=== PATIENT | female | born 1965 | race Two or more races ===

== ENCOUNTER 2016-12-05 20:55 | Emergency (ER) | payer MEDICARE, OTHER ==
[~2016-12-05] VITALS: Ht 167.6 cm; Wt 79.4 kg
[2016-12-05 21:08] VITALS: BP 160/90
--- NOTE | 2016-12-05 21:17 | Emergency Room Report ---
History of Present Illness General Chief Complaint: Alcohol Intoxication Present Illness HPI The patient presents via EMS after being unsteady on her feet in the streets. She admits to having imbibed alcohol from lunchtime. She denies any suicidal ideation at this time. Patient denies any nausea vomiting diarrhea chest pain cough sore throat headache rash joint pain. (Rocky Dubon M.D.) Allergies: Coded Allergies: DULOXETINE (Verified Allergy, Unknown, 12/05/16) HALOPERIDOL (Verified Allergy, Unknown, 12/05/16) LITHIUM (Verified Allergy, Unknown, 12/05/16) SHELLFISH DERIVED (Verified Allergy, Unknown, 12/05/16) SULFA (SULFONAMIDE ANTIBIOTICS) (Verified Allergy, Unknown, 12/05/16) Patient History Past Medical History: see triage record Social History: Reports: alcohol use Social History Narrative lives by self in apartment Last Menstrual Period: N/A Reviewed Nursing Documentation: PMH: Agreed, PSxH: Agreed (Rocky Dubon M.D.) Nursing Documentation-PMH Hx Hypertension: No - HYPERLIPIDEMIA, MIGRANE, SUBARACHNOID HEMORRHAGE - TRAUMATIC History Of Psychiatric Problem: Yes - DEPRESSION, ANXIETY,, ALCOHOL ABUSE, PANIC DISORDER (Rocky Dubon M.D.) Review of Systems All Other Systems: negative except mentioned in HPI (Rocky Dubon M.D.) Physical Exam Vital Signs Date Time Temp Pulse Resp B/P Pulse Ox O2 Delivery O2 Flow Rate FiO2 12/05/16 20:58 84 16 160/90 94 Room Air Sp02 EP Interpretation: reviewed, abnormal - Slightly low as interpreted by me General Appearance: well appearing, no apparent distress, GCS 15 Head: normocephalic Eyes: bilateral eye PERRL, bilateral eye Scleral Injection ENT: moist mucus membranes Neck: supple Respiratory: lungs clear, normal breath sounds Cardiovascular #1: regular rate, rhythm Cardiovascular #2: 2+ radial (R) Gastrointestinal: normal inspection, normal bowel sounds, non tender, no mass, non-distended Musculoskeletal: back normal, gait/station normal, normal range of motion Neurologic: motor strength/tone normal, DTRs symmetric, sensory intact, other - slurred speech, ataxia, nystagmus Psychiatric: no suicidal/homicidal ideation, other - denial Skin: normal inspection, warm/dry (Rocky Dubon M.D.) Medical Decision Making Diagnostic Impression: Primary Impression: Acute alcoholic intoxication ER Course The patient presents after drinking alcohol and being unsteady on her feet. The patient denies any head trauma. She has a nonfocal neurologic exam at this time. In discussion with Dr. Connors who is taking over the patient - we elected not to do any labs and just observe the patient in emergency department. She denies dyspnea, cough or chest pain. 22:15 - Not suicidal. Still ataxic. States has tried to be sober for last 5 years. Signed out to Dr. Connors. (Rocky Dubon M.D.) Last Vital Signs Date Time Temp Pulse Resp B/P Pulse Ox O2 Delivery O2 Flow Rate FiO2 12/06/16 01:14 98.0 88 16 148/88 94 Room Air Status: improved (Rocky Dubon M.D.) Reevaluation Time: 01:00 Status: improved Reevaluation Impression Patient alert and oriented Ambulated down anne with steady gait Taking Uber home No other acute issues here Given DC instructions filled out by Dr Dubon (CAITY CONNORS M.D.) Disposition: HOME, SELF-CARE Condition: Improved Referrals: [facility] (PCP) Rocky Dubon M.D. Dec 05, 2016 21:17 CAITY CONNORS M.D. Dec 06, 2016 01:01
[2016-12-06 01:13] VITALS: BP 148/88
[2016-12-06 01:14] VITALS: BP 148/88
== END 2016-12-06 01:15 | disposition home or self-care (01) ==
LOC: EDBD 20:55 → EMR 21:14
DX: F10.129 Alcohol abuse with intoxication, unspecified (principal); E78.5 Hyperlipidemia, unspecified; F32.9 Major depressive disorder, single episode, unspecified; F41.9 Anxiety disorder, unspecified; Z87.820 Personal history of traumatic brain injury; Z88.8 Allergy status to other drugs, medicaments and biological substances; Z88.2 Allergy status to sulfonamides
CPT/HCPCS: 99284